=== PATIENT | female | born 1940 | race Two or more races ===

== ENCOUNTER → 2017-03-04 | Outpatient (CLI) | payer OTHER ==
[~2017-03-04] MED LIST: KEFLEX500 MG PO; ULTRACET PO
== END | disposition home or self-care (01) ==
LOC: LAB 08:16
DX: C50.411 Malignant neoplasm of upper-outer quadrant of right female breast (principal); Z17.0 Estrogen receptor positive status [ER+]; N60.92 Unspecified benign mammary dysplasia of left breast; Z90.11 Acquired absence of right breast and nipple; Z90.12 Acquired absence of left breast and nipple; D51.0 Vitamin B12 deficiency anemia due to intrinsic factor deficiency; K31.83 Achlorhydria; I10 Essential (primary) hypertension; E78.4 Other hyperlipidemia; E04.2 Nontoxic multinodular goiter; D50.8 Other iron deficiency anemias; D51.8 Other vitamin B12 deficiency anemias; R97.0 Elevated carcinoembryonic antigen [CEA]; R97.8 Other abnormal tumor markers; E03.8 Other specified hypothyroidism

== ENCOUNTER → 2017-07-22 | Outpatient (CLI) | payer OTHER | END | disposition home or self-care (01) | LOC: LAB 09:25 | DX: C73 Malignant neoplasm of thyroid gland (principal); D05.91 Unspecified type of carcinoma in situ of right breast; I25.2 Old myocardial infarction; M17.12 Unilateral primary osteoarthritis, left knee; I87.2 Venous insufficiency (chronic) (peripheral); I25.10 Atherosclerotic heart disease of native coronary artery without angina pectoris; I11.9 Hypertensive heart disease without heart failure; E78.2 Mixed hyperlipidemia; J45.20 Mild intermittent asthma, uncomplicated; R26.2 Difficulty in walking, not elsewhere classified; N18.2 Chronic kidney disease, stage 2 (mild); C50.411 Malignant neoplasm of upper-outer quadrant of right female breast; Z17.0 Estrogen receptor positive status [ER+]; N60.92 Unspecified benign mammary dysplasia of left breast; Z90.11 Acquired absence of right breast and nipple; D51.0 Vitamin B12 deficiency anemia due to intrinsic factor deficiency; K31.83 Achlorhydria; I10 Essential (primary) hypertension; E04.2 Nontoxic multinodular goiter; D50.8 Other iron deficiency anemias; D51.8 Other vitamin B12 deficiency anemias; E03.8 Other specified hypothyroidism; R97.0 Elevated carcinoembryonic antigen [CEA]; R97.8 Other abnormal tumor markers; E55.9 Vitamin D deficiency, unspecified; K90.89 Other intestinal malabsorption; E78.4 Other hyperlipidemia ==

== ENCOUNTER 2017-11-18 09:20 | Outpatient (CLI) | payer OTHER | END 2017-11-18 09:27 | disposition home or self-care (01) | LOC: RAD 501 09:20 | DX: M75.81 Other shoulder lesions, right shoulder (principal) ==

== ENCOUNTER 2018-02-16 09:20 | Outpatient (CLI) | payer OTHER | END 2018-02-16 09:30 | disposition home or self-care (01) | LOC: LAB 09:20 | DX: C50.411 Malignant neoplasm of upper-outer quadrant of right female breast (principal); Z17.0 Estrogen receptor positive status [ER+]; N60.92 Unspecified benign mammary dysplasia of left breast; D51.0 Vitamin B12 deficiency anemia due to intrinsic factor deficiency; K31.83 Achlorhydria; I10 Essential (primary) hypertension; E78.49 Other hyperlipidemia; E04.2 Nontoxic multinodular goiter; E03.8 Other specified hypothyroidism; R97.0 Elevated carcinoembryonic antigen [CEA]; R97.8 Other abnormal tumor markers; Z90.13 Acquired absence of bilateral breasts and nipples ==

== ENCOUNTER 2018-06-10 08:44 | Outpatient (CLI) | payer OTHER | END 2018-06-10 08:53 | disposition home or self-care (01) | LOC: LAB 08:44 | DX: C50.411 Malignant neoplasm of upper-outer quadrant of right female breast (principal); Z17.0 Estrogen receptor positive status [ER+]; N60.92 Unspecified benign mammary dysplasia of left breast; Z90.11 Acquired absence of right breast and nipple; Z90.12 Acquired absence of left breast and nipple; D51.0 Vitamin B12 deficiency anemia due to intrinsic factor deficiency; K31.83 Achlorhydria; I10 Essential (primary) hypertension; E78.49 Other hyperlipidemia; E04.2 Nontoxic multinodular goiter; R97.0 Elevated carcinoembryonic antigen [CEA]; R97.8 Other abnormal tumor markers ==

== ENCOUNTER 2018-06-10 09:33 | Outpatient (CLI) | payer OTHER | END 2018-06-10 17:00 | disposition home or self-care (01) | LOC: SONOGRAMA 09:33 → MAMO-SONO 10:45 → SONOGRAMA 17:00 | DX: C50.411 Malignant neoplasm of upper-outer quadrant of right female breast (principal); Z17.0 Estrogen receptor positive status [ER+]; N60.92 Unspecified benign mammary dysplasia of left breast; Z90.11 Acquired absence of right breast and nipple; Z90.12 Acquired absence of left breast and nipple; D51.0 Vitamin B12 deficiency anemia due to intrinsic factor deficiency; K31.83 Achlorhydria; I10 Essential (primary) hypertension; E78.49 Other hyperlipidemia; E04.2 Nontoxic multinodular goiter ==

== ENCOUNTER → 2018-07-22 | Outpatient (CLI) | payer OTHER | END | disposition home or self-care (01) | LOC: SONOGRAMA 09:54 | DX: E04.1 Nontoxic single thyroid nodule (principal) ==

== ENCOUNTER → 2018-09-08 09:11 | Outpatient (CLI) | payer OTHER | END | disposition home or self-care (01) | LOC: LAB 09:11 | DX: E04.2 Nontoxic multinodular goiter (principal); C50.411 Malignant neoplasm of upper-outer quadrant of right female breast; Z17.0 Estrogen receptor positive status [ER+]; N60.92 Unspecified benign mammary dysplasia of left breast; Z90.11 Acquired absence of right breast and nipple; Z90.12 Acquired absence of left breast and nipple; D51.0 Vitamin B12 deficiency anemia due to intrinsic factor deficiency; K31.83 Achlorhydria; I10 Essential (primary) hypertension; E78.49 Other hyperlipidemia; D50.8 Other iron deficiency anemias; D51.8 Other vitamin B12 deficiency anemias; K90.89 Other intestinal malabsorption; E03.8 Other specified hypothyroidism; R97.0 Elevated carcinoembryonic antigen [CEA]; R97.8 Other abnormal tumor markers ==

== ENCOUNTER 2018-09-22 08:48 | Outpatient (CLI) | payer OTHER ==
[~2018-09-22] VITALS: Ht 165.1 cm; Wt 94.8 kg
== END 2018-09-22 09:10 | disposition home or self-care (01) ==
LOC: OFIC 805 08:48
DX: E04.2 Nontoxic multinodular goiter (principal); E04.1 Nontoxic single thyroid nodule; R49.0 Dysphonia; J38.01 Paralysis of vocal cords and larynx, unilateral

== ENCOUNTER → 2018-10-08 | Outpatient (CLI) | payer OTHER | END | disposition home or self-care (01) | LOC: TOM 09:54 | DX: I25.10 Atherosclerotic heart disease of native coronary artery without angina pectoris (principal); E78.00 Pure hypercholesterolemia, unspecified; H83.09 Labyrinthitis, unspecified ear ==

== ENCOUNTER 2019-02-14 09:00 | Outpatient (CLI) | payer OTHER | END 2019-02-14 09:05 | disposition home or self-care (01) | LOC: LAB 09:00 | DX: N60.92 Unspecified benign mammary dysplasia of left breast (principal); C50.411 Malignant neoplasm of upper-outer quadrant of right female breast; Z17.0 Estrogen receptor positive status [ER+]; Z90.11 Acquired absence of right breast and nipple; Z90.12 Acquired absence of left breast and nipple; D51.0 Vitamin B12 deficiency anemia due to intrinsic factor deficiency; K31.83 Achlorhydria; I10 Essential (primary) hypertension; E78.49 Other hyperlipidemia; E04.2 Nontoxic multinodular goiter; D50.8 Other iron deficiency anemias; K90.89 Other intestinal malabsorption; E03.8 Other specified hypothyroidism; R97.0 Elevated carcinoembryonic antigen [CEA]; R97.8 Other abnormal tumor markers ==

== ENCOUNTER → 2019-04-12 | Outpatient (CLI) | payer OTHER | END | disposition home or self-care (01) | LOC: MRI 14:18 | DX: G11.2 Late-onset cerebellar ataxia (principal) | CPT/HCPCS: 70551 ==

== ENCOUNTER 2019-06-14 09:07 | Outpatient (CLI) | payer OTHER | END 2019-06-14 15:00 | disposition home or self-care (01) | LOC: LAB 09:07 | DX: I34.0 Nonrheumatic mitral (valve) insufficiency (principal); I25.118 Atherosclerotic heart disease of native coronary artery with other forms of angina pectoris; E78.00 Pure hypercholesterolemia, unspecified; E66.09 Other obesity due to excess calories; Z95.5 Presence of coronary angioplasty implant and graft; Z68.34 Body mass index [BMI] 34.0-34.9, adult; H40.89 Other specified glaucoma; M75.80 Other shoulder lesions, unspecified shoulder; N18.2 Chronic kidney disease, stage 2 (mild); I25.2 Old myocardial infarction; M17.12 Unilateral primary osteoarthritis, left knee; I73.89 Other specified peripheral vascular diseases; I25.10 Atherosclerotic heart disease of native coronary artery without angina pectoris; I11.9 Hypertensive heart disease without heart failure; E78.2 Mixed hyperlipidemia; J45.20 Mild intermittent asthma, uncomplicated; R26.2 Difficulty in walking, not elsewhere classified; Z85.3 Personal history of malignant neoplasm of breast; Z85.850 Personal history of malignant neoplasm of thyroid; E88.89 Other specified metabolic disorders; E04.1 Nontoxic single thyroid nodule; Z12.11 Encounter for screening for malignant neoplasm of colon; Z13.29 Encounter for screening for other suspected endocrine disorder; E55.9 Vitamin D deficiency, unspecified; E53.8 Deficiency of other specified B group vitamins; D50.8 Other iron deficiency anemias ==

== ENCOUNTER 2019-06-14 09:51 | Outpatient (CLI) | payer OTHER | END 2019-06-14 09:56 | disposition home or self-care (01) | LOC: SONOGRAMA 09:51 | DX: E04.2 Nontoxic multinodular goiter (principal); C50.411 Malignant neoplasm of upper-outer quadrant of right female breast; Z17.0 Estrogen receptor positive status [ER+]; N60.92 Unspecified benign mammary dysplasia of left breast; Z90.11 Acquired absence of right breast and nipple; Z90.12 Acquired absence of left breast and nipple; D51.0 Vitamin B12 deficiency anemia due to intrinsic factor deficiency; K31.83 Achlorhydria; I10 Essential (primary) hypertension; E78.49 Other hyperlipidemia ==

== ENCOUNTER 2020-02-15 09:27 | Outpatient (CLI) | payer OTHER | END 2020-02-15 09:40 | disposition home or self-care (01) | LOC: RAD 09:27 | PROVIDERS: ATTEND Internal Medicine Hematology & Oncology | DX: C50.411 Malignant neoplasm of upper-outer quadrant of right female breast (principal); E04.2 Nontoxic multinodular goiter; Z17.0 Estrogen receptor positive status [ER+]; N60.92 Unspecified benign mammary dysplasia of left breast; Z90.11 Acquired absence of right breast and nipple; Z90.12 Acquired absence of left breast and nipple; D51.0 Vitamin B12 deficiency anemia due to intrinsic factor deficiency; K31.83 Achlorhydria; I10 Essential (primary) hypertension; E78.49 Other hyperlipidemia ==

== ENCOUNTER → 2020-02-15 | Outpatient (CLI) | payer OTHER | END | disposition home or self-care (01) | LOC: LAB 08:16 | PROVIDERS: ATTEND Internal Medicine Hematology & Oncology | DX: D50.8 Other iron deficiency anemias (principal); I10 Essential (primary) hypertension; D51.8 Other vitamin B12 deficiency anemias; E03.8 Other specified hypothyroidism; C50.919 Malignant neoplasm of unspecified site of unspecified female breast; R97.8 Other abnormal tumor markers; R97.0 Elevated carcinoembryonic antigen [CEA]; E55.9 Vitamin D deficiency, unspecified; C50.411 Malignant neoplasm of upper-outer quadrant of right female breast; Z17.0 Estrogen receptor positive status [ER+]; N60.92 Unspecified benign mammary dysplasia of left breast; Z90.11 Acquired absence of right breast and nipple; Z90.12 Acquired absence of left breast and nipple; D51.0 Vitamin B12 deficiency anemia due to intrinsic factor deficiency; K31.83 Achlorhydria; E78.49 Other hyperlipidemia; E04.2 Nontoxic multinodular goiter ==

== ENCOUNTER 2020-03-19 08:44 | Outpatient (CLI) | payer OTHER | END 2020-03-19 08:48 | disposition home or self-care (01) | LOC: LAB 08:44 | PROVIDERS: ATTEND Radiology Diagnostic Radiology | DX: N20.0 Calculus of kidney (principal) ==

== ENCOUNTER → 2020-03-20 | Outpatient (CLI) | payer OTHER ==
[~2020-03-20] MED LIST changes: +CARDURA XL4 MG; +DIALYVITE 3,001 EACH; +ISOSORBIDE MONO60 MG; +LEVOTHYROXINE25 MCG; +LOPRESSOR HCT1 EACH; +LOSARTAN-HCTZ1 EAC2; +NOXIFOL-D32500 UNIT; +VITAMIN B122500 MCG
== END | disposition home or self-care (01) ==
LOC: TOM 07:37
PROVIDERS: ATTEND Internal Medicine Hematology & Oncology
DX: K57.90 Diverticulosis of intestine, part unspecified, without perforation or abscess without bleeding (principal); Q44.6 Cystic disease of liver; C50.411 Malignant neoplasm of upper-outer quadrant of right female breast; Z17.0 Estrogen receptor positive status [ER+]; N60.92 Unspecified benign mammary dysplasia of left breast; D51.0 Vitamin B12 deficiency anemia due to intrinsic factor deficiency; K31.83 Achlorhydria; I10 Essential (primary) hypertension; E78.49 Other hyperlipidemia; E04.2 Nontoxic multinodular goiter; Z90.13 Acquired absence of bilateral breasts and nipples
CPT/HCPCS: 71260; 74177; Q9965

== ENCOUNTER 2020-03-21 14:10 | Emergency (ER) | payer OTHER ==
[~2020-03-21] VITALS: Ht 167.6 cm; Wt 89.8 kg
[~2020-03-21 14:10] MED LIST changes: -CARDURA XL4 MG; -DIALYVITE 3,001 EACH; -ISOSORBIDE MONO60 MG; -LEVOTHYROXINE25 MCG; -LOPRESSOR HCT1 EACH; -LOSARTAN-HCTZ1 EAC2; -NOXIFOL-D32500 UNIT; -VITAMIN B122500 MCG
[2020-03-21] MEDS ORDERED: CARDURA XL4 MG (14:35)
[2020-03-21] MEDS ORDERED: LOPRESSOR HCT1 EACH (14:35)
[2020-03-21] MEDS ORDERED: ISOSORBIDE MONO60 MG (14:35)
[2020-03-21] MEDS ORDERED: LOSARTAN-HCTZ1 EAC2 (14:35)
[2020-03-21] MEDS ORDERED: DIALYVITE 3,001 EACH (14:36)
[2020-03-21] MEDS ORDERED: LEVOTHYROXINE25 MCG (14:36)
[2020-03-21] MEDS ORDERED: NOXIFOL-D32500 UNIT (14:36)
[2020-03-21] MEDS ORDERED: VITAMIN B122500 MCG (14:37)
== END 2020-03-21 17:34 | disposition home or self-care (01) ==
LOC: ER 14:10
DX: R60.0 Localized edema (principal); T50.8X5A Adverse effect of diagnostic agents, initial encounter; Y92.89 Other specified places as the place of occurrence of the external cause

== ENCOUNTER 2021-06-21 10:47 | Outpatient (CLI) | payer OTHER ==
[~2021-06-21 10:47] MED LIST changes: +CARDURA XL4 MG; +DIALYVITE 3,001 EACH; +ISOSORBIDE MONO60 MG; +LEVOTHYROXINE25 MCG; +LOPRESSOR HCT1 EACH; +LOSARTAN-HCTZ1 EAC2; +NOXIFOL-D32500 UNIT; +VITAMIN B122500 MCG
== END 2021-06-21 10:48 | disposition home or self-care (01) ==
LOC: SONOGRAMA 10:47
PROVIDERS: ATTEND Internal Medicine Hematology & Oncology
DX: E04.2 Nontoxic multinodular goiter (principal)

== ENCOUNTER 2021-09-02 10:09 | Outpatient (CLI) | payer OTHER | END 2021-09-02 10:12 | disposition home or self-care (01) | LOC: SONOGRAMA 10:09 | PROVIDERS: ATTEND Pathology Anatomic Pathology & Clinical Pathology | DX: E06.3 Autoimmune thyroiditis (principal); E04.2 Nontoxic multinodular goiter ==

== ENCOUNTER 2023-01-29 13:56 | Outpatient (CLI) | payer OTHER | END 2023-01-29 14:01 | disposition home or self-care (01) | LOC: SONOGRAMA 13:56 | PROVIDERS: ATTEND Pathology Anatomic Pathology & Clinical Pathology | DX: D44.0 Neoplasm of uncertain behavior of thyroid gland (principal); E07.9 Disorder of thyroid, unspecified ==

== ENCOUNTER 2023-12-22 10:06 | Outpatient (CLI) | payer OTHER | END 2023-12-22 10:12 | disposition home or self-care (01) | LOC: SONOGRAMA 10:06 | PROVIDERS: ATTEND Internal Medicine Hematology & Oncology | DX: E04.2 Nontoxic multinodular goiter (principal); C50.411 Malignant neoplasm of upper-outer quadrant of right female breast; Z17.0 Estrogen receptor positive status [ER+]; N60.92 Unspecified benign mammary dysplasia of left breast; Z90.11 Acquired absence of right breast and nipple; Z90.12 Acquired absence of left breast and nipple; D51.0 Vitamin B12 deficiency anemia due to intrinsic factor deficiency; K31.83 Achlorhydria; I10 Essential (primary) hypertension; E78.5 Hyperlipidemia, unspecified; I71.30 Abdominal aortic aneurysm, ruptured, unspecified; I82.432 Acute embolism and thrombosis of left popliteal vein; I26.99 Other pulmonary embolism without acute cor pulmonale ==

== ENCOUNTER 2024-01-07 09:05 | Outpatient (CLI) | payer OTHER | END 2024-01-07 09:08 | disposition home or self-care (01) | LOC: SONOGRAMA 09:05 | PROVIDERS: ATTEND Pathology Anatomic Pathology & Clinical Pathology | DX: D34 Benign neoplasm of thyroid gland (principal); E07.89 Other specified disorders of thyroid; E04.2 Nontoxic multinodular goiter ==

== ENCOUNTER 2024-06-30 10:10 | Outpatient (CLI) | payer OTHER | END 2024-06-30 10:18 | disposition home or self-care (01) | LOC: SONOGRAMA 10:10 | PROVIDERS: ATTEND Internal Medicine Hematology & Oncology | DX: C50.411 Malignant neoplasm of upper-outer quadrant of right female breast (principal) ==

== ENCOUNTER 2024-09-19 08:44 | Outpatient (CLI) | payer OTHER ==
[2024-09-19 10:01] LABS: CREATININE SERUM 0.97 mg/dL (0.55-1.02); GFR 54.58
== END 2024-09-19 08:57 | disposition home or self-care (01) ==
LOC: LAB 08:44
PROVIDERS: ATTEND Radiology Diagnostic Radiology
DX: I26.99 Other pulmonary embolism without acute cor pulmonale (principal)

== ENCOUNTER 2024-09-21 08:17 | Outpatient (CLI) | payer OTHER | END 2024-09-21 08:30 | disposition home or self-care (01) | LOC: TOM 08:17 | PROVIDERS: ATTEND Internal Medicine | DX: I26.99 Other pulmonary embolism without acute cor pulmonale (principal) ==

== ENCOUNTER 2025-01-26 10:26 | Outpatient (CLI) | payer OTHER | END 2025-01-26 10:32 | disposition home or self-care (01) | LOC: SONOGRAMA 10:26 | PROVIDERS: ATTEND Pathology Anatomic Pathology & Clinical Pathology | DX: D34 Benign neoplasm of thyroid gland (principal); E07.89 Other specified disorders of thyroid; E04.2 Nontoxic multinodular goiter ==